=== PATIENT | male | born 1955 | race Caucasian/White ===

== ENCOUNTER 2016-11-12 15:52 | Emergency (ER) | payer BC, OTHER ==
--- NOTE | ~2016-11-12 | CR72 ---
[facility] A Service of [facility] & [facility] RADIOLOGY TEXT RESULTS PATIENT: EDGARD KITCHEN LOCATION: [facility] : [birth year] UNIT #: [id number] AGE: [address]: Bhupendra Solano MD SEX: M ORDER DR: [id number] [facility] [address] [facility]. [place], [place] [address] [id number] MR#: [id number] Acc #: [id number] NAME: EDGARD KITCHEN, : 1955 SEX: M STUDY DATE/TIME: 11/12/2016 16:05 UNIT: [facility] ROOM: STUDY DESCRIPTION: CR Chest Single View Portable Attending Physician: Bhupendra Solano M.D. Ordering Physician: Ed Jefry Staley M.D. Primary Care Physician: Primary Care Physician No MEDICAL IMAGING REPORT This report is preliminary unless electronic signature is present EXAM Portable chest, 11/12/2016 CLINICAL HISTORY Fever, short of air, weakness today. FINDINGS Tracheostomy appliance remains, but there is no consolidation or effusion or pneumothorax. Heart size is normal. There is an old, healed right clavicle fracture deformity but no acute bony abnormality. Dictated by... Jaun Simpson M.D. THIS IS AN ELECTRONICALLY VERIFIED REPORT Jaun Simpson M.D. at 11/15/2016 3:47 PM TEV/psc TD: 11/13/2016 02:45 JOB #: [id number] MEDICAL IMAGING REPORT COPY
[2016-11-12 15:42] LABS: BASOPHIL# 0.1 X10e3 (0-0.3); BASOPHIL% 0.5 % (0-2.5); EOSINOPHIL# 0.1 X10e3 (0-0.7); EOSINOPHIL% 0.6 % (0.0-7.0); HEMATOCRIT 38.9 % (38.0-50.0); HEMOGLOBIN 12.8 gm/dL (13.0-16.0); LYMPHOCYTE# 1.8 X10e3 (1.0-3.5); LYMPHOCYTE% 13.7 % (17.0-45.0); MEAN CELL VOLUME 95.7 FL (83-96); MEAN CORPUSCULAR HEMOGLOBIN 31.6 PG (28-34); MEAN PLATELET VOLUME 10.3 FL (6.5-11.5); MONOCYTE# 1.2 X10e3 (0-1.0); MONOCYTE% 9.1 % (3.0-12.0); NEUTROPHIL% 76.1 % (40-75); PLATELET COUNT 188 X10e3 (140-420); RED BLOOD COUNT 4.07 X10e (3.90-5.60); WHITE BLOOD COUNT 13.1 X10e3 (4.0-10.5)
[2016-11-12 15:44] LABS: DIFF IND NO
[~2016-11-12 15:52] MED LIST: ACETAMINOPHEN650 M4 GT; ALBUTEROL MININEB NEB; ATIVAN0.5 M1 GT; BACLOFEN10 MG GT; BETADINE3780 ML TOP; BUSPIRONE HCL10 MG GT; CARDIZEM30 M1 GT; DEPAKENE S50 MG/ML S GT; DESYREL50 MG GT; DIGOX0.125 MG GT; DOCUSATE SODIU100 MG GT; JEVITY 1.5 CA1000 ML GT; METOPROLOL TAR100 MG GT; MIRALAX17 G2 GT; NO MEDICATIONS; PANTOPRAZOLE SO40 MG GT; PERCOCET5/325 PO; [UNRECOGNIZED DRUG - OTHER] GT
[2016-11-12 16:04] LABS: ALBUMIN SERUM 2.8 g/dL (3.5-5.0); ALKALINE PHOSPHATASE 93 U/L (32-92); ALT (SGPT) 13 U/L (10-40); AST (SGOT) 16 U/L (10-42); BILIRUBIN, DIRECT 0.1 mg/dL (0.0-0.2); BILIRUBIN,INDIRECT 0.3 mg/dL (0.0-0.9); BILIRUBIN,TOTAL 0.4 mg/dL (0.2-2.0); BLOOD UREA NITROGEN 13 mg/dL (9-23); CALCIUM SERUM 9.5 mg/dL (8.4-10.2); CARBON DIOXIDE 30 mmol/L (22-31); CHLORIDE 95 mmol/L (100-111); CREATININE SERUM 0.5 mg/dL (0.6-1.4); GLOM FILT RATE Estimated ABOVE60 mL/min (>60); GLUCOSE FASTING 80 mg/dL (70-110); PROTEIN TOTAL SERUM 7.1 g/dL (6.0-8.3); SODIUM 132 mmol/L (135-145)
[2016-11-13] MEDS ORDERED: VALPROIC A250 MG/51 PO ×2 (21:16→21:26)
[2016-11-13] MEDS ORDERED: PERFOROMIS20 MCG/2 M NEB (21:23)
[2016-11-13] MEDS ORDERED: VITAMIN C500 MG/5 M PO (21:25)
[2016-11-13] MEDS ORDERED: ACETAMINOP GT (21:36)
[2016-11-13] MEDS ORDERED: HYDROCORTISONE30 G2 EXT (21:39)
== END 2016-11-12 19:07 | disposition home or self-care (01) ==
LOC: CED 15:52
PROVIDERS: Emergency Medicine
DX: L03.312 Cellulitis of back [any part except buttock and flank] (principal); L98.429 Non-pressure chronic ulcer of back with unspecified severity; I10 Essential (primary) hypertension; E11.9 Type 2 diabetes mellitus without complications; Z90.49 Acquired absence of other specified parts of digestive tract; Z98.890 Other specified postprocedural states
CPT/HCPCS: 36415; 71010; 80048; 80076; 83605; 85025; 87040; 87070; 87077; 87186; 87205; 96365; 99284

== ENCOUNTER 2016-11-13 20:14 | Inpatient (IN) | payer BC, OTHER ==
--- NOTE | ~2016-11-13 | DS ---
Unit #: [id number] #: [id number] Patient: EDGARD KITCHEN [id number] [address] [address] [id number] MR#: [id number] NAME: EDGARD KITCHEN SR ROOM: 216 Age: 61 Sex: M Admission Date: 11/13/2016 : 1955 Discharge Date: 11/16/2016 Attending Physician: Lashon Fair M.D. Primary Care Physician: No Primary Care Physician DISCHARGE SUMMARY DISCHARGE DIAGNOSES 1. Cellulitis. 2. Chronic respiratory failure. CHIEF COMPLAINT/HISTORY OF PRESENT ILLNESS The patient was admitted with complaint of cellulitis. Had an incision and drainage done by general surgery and has been doing well. Infectious disease saw the patient, recommended antibiotics doxycycline 100 mg p.o. b.i.d. for 10 days. He will be discharged back to senior care. PHYSICAL EXAMINATION VITAL SIGNS: Temperature is 97, pulse 63, respirations 16, blood pressure 95/49. NEUROLOGIC: He is at baseline. CARDIOVASCULAR: S1 plus S2. RESPIRATIONS: Bilateral air entry. Bilateral mild rhonchi. GASTROINTESTINAL: Nontender, soft. Bowel sounds positive. EXTREMITIES: No edema. DIAGNOSTIC STUDIES Labs and imaging have been reviewed. DISCHARGE MEDICATIONS As per med rec. FOLLOWUP Follow with Dr. Rosalio Hurst and will be discharged back to senior care. Dictated by... Maria Esther Wyatt TD: 11/16/2016 12:28 JOB #: [id number] Unit #: [id number] #: [id number] Patient: EDGARD KITCHEN DISCHARGE SUMMARY X Lashon Fair MD X DISCHARGE SUMMARY
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
--- NOTE | ~2016-11-13 | OR ---
Unit #: [id number] #: [id number] Patient: EDGARD KITCHEN [id number] [address] [address] [id number] I MR#: [id number] NAME: EDGARD KITCHEN SR ROOM: [facility] Date of Procedure: 11/14/2016 Admission Date: 11/13/2016 Surgeon: Les Carbajal M.D. : 1955 Attending Physician: Lashon Fair M.D. Primary Care Physician: Primary Care Physician No OPERATIVE REPORT PREOPERATIVE DIAGNOSIS Necrotic abscess, right back. POSTOPERATIVE DIAGNOSIS Necrotic abscess, right back. PROCEDURE PERFORMED Sharp excisional debridement of skin, subcutaneous tissue, and muscle 8 x 8 cm area of right upper back. ANESTHESIA General LMA anesthesia with 0.5% Marcaine plain local anesthesia. FINDINGS The area was sharply debrided circumferentially. FLUIDS 1000 mL of crystalloid. ESTIMATED BLOOD LOSS Minimal. DRAINS None. TUBES None. SPECIMENS Sent to microbiology and pathology. COMPLICATIONS None apparent. CONDITION The patient tolerated the procedure well. INDICATIONS FOR PROCEDURE The patient is a 61-year-old white male, who is from a rehabilitation center, had developed a large abscess on his right upper back. He presents at this time for sharp excisional debridement. Unit #: [id number] #: [id number] Patient: EDGARD KITCHEN SR DESCRIPTION OF PROCEDURE After obtaining informed consent as well as receiving scheduled antibiotics, the patient was brought to the operating room and after adequate general endotracheal anesthesia was obtained as the patient has a tracheostomy tube, the patient was placed into the left lateral decubitus position with all areas carefully padded and axillary roll in place and all extremities manipulated very carefully. His right back was prepped and draped in a sterile fashion. An incision was made circumferentially around the necrotic tissue with a knife and taken down through the skin and subcutaneous tissues with a knife and all necrotic areas were sharply debrided with a scalpel. This included some level of the muscular fascia. Hemostasis was obtained with the Bovie. All areas were infiltrated with 0.5% Marcaine plain local anesthesia, irrigated and packed with a saline soaked fluffs and then a dry dressing. Needle counts, sponge counts, and instrument counts were all correct as reported by the scrub nurse x2. The patient went from the operating room to the recovery room in stable condition. Dictated by... Maria Esther Stallworth/carrie TD: 11/15/2016 06:02 JOB #: [id number] OPERATIVE REPORT X Les Carbajal MD X PROCEDURE OPERATIVE NOTE
--- NOTE | ~2016-11-13 | EKG ---
PATIENT: EDGARD KITCHEN UNIT #: [id number] Ventricular Rate: 88 BPM Atrial Rate: 88 BPM P-R Interval: 120 ms QRS Duration: 98 ms Q-T Interval: 336 ms QTC Calculation(Bezet): 406 ms P [place]: 57 degrees Calculated R [place]: 7 degrees Calculated T [place]: 56 degrees Diagnosis Line: Normal sinus rhythm Diagnosis Line: Normal ECG Diagnosis Line: When compared with ECG of 23-MAY-2016 08:54, Diagnosis Line: Criteria for Inferior infarct are no longer Diagnosis Line: Present Diagnosis Line: T wave inversion no longer evident in Inferior Diagnosis Line: leads Diagnosis Line: Confirmed by MENDEL WESLEY MD ([id number]) on Diagnosis Line: 11/14/2016 11:28:28 AM INTERPRETING MD: MARYJANE HULL
--- NOTE | ~2016-11-13 | A ---
[facility] Nutrition Therapy DATE: 11/14/16 Patient: EDGARD KITCHEN SR Physician: DANILO Address: [address] [place] [address] Room/Bed: [address] [place] [address], Zip: [place] [address] Admit Date: 11/13/16 Date of : [birth year] Height: 5 7 Weight: 128 58.5 NUTRITIONAL ASSESSMENT: REASON: 2 nutrition risk pts RE: home TF and pressure ulcer 61 yo male admitted for pressure ulcer PMH: traumatic brain injury, chronic respiratory failure, tracheostomy, COPD, appendectomy, encephalopathy Anthropometrics: HT: 5'10", WT: 59 kg (130#), BMI: 18.7, 78%IBW Labs: Na+ 132, Cl- 97, Creat 0.5 Meds: NaCl, Protonix, Miralax, Ascorbic acid, Colace I/O & Bowel function: 970/- Skin Integrity: pressure ucler (right flank), redness (LT hip), scabbing (L outer ankle) Estimated Nutrition Needs: 1770 - 1065 kcal (30-35 kcal/kg) 71 - 89 grams protein (1.2-1.5 g/kg) Assessment: Chart reviewed, events noted. Pt getting debridement for skin issues. [facility], there pt receives Jevity 1.5 2 cans TID + 1/2 can @ HS (6.5 cans total daily). Pt has recent weight loss of ~30# over past 6 months (wts noted 158-169#), 21% severe wt loss. Pt was unable to communicate 2' PMH (traumatic brain injury). No current plans in place to begin alternative nutrition support at this time. Dx: Inadequate oral intake RT PMH AEB NPO, 18.7 BMI, 30# wt loss, PEG in place, need for home enteral nutrition support. Intervention: 1. Jevity 1.5 Monitoring, Evaluation and Goals: 1. Nutrition; provide ~80-100% of estimated needs 2. Labs; WNL 3. Skin; promote healing 4. Weights; promote weight gain Recommendations: 1. Once medically feasible, begin current home nutrition regimen of Jevity 1.5 2 cans [facility] Nutrition Therapy DATE: 11/14/16 Patient: EDGARD KITCHEN SR Physician: DANILO Address: [address] [place] [address] Room/Bed: [address] [place] [address], Zip: [place] [address] Admit Date: 11/13/16 Date of : [birth year] Height: 5 7 Weight: 128 58.5 TID + 1/2 can @ HS. This will provide: 2308 kcal/98 g PRO/1170 mL free H2O. Add free water flushes 190 mL q 4 hrs to meet pt's current estimated fluid needs. 2. Add multivitamin daily to pt's currrent medication regimen 2' to promote wound healing. Pt is at a moderate nutrtional risk. RD will f/u per protocol. Respectfully, JEVON BYRNES, Colorectal Surgeon Shira Peterson MS, RD, LD [employer] [facility] cc: client file
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
[2016-11-13] MEDS ORDERED: VALPROIC A250 MG/51 PO ×2 (21:16→21:26)
[2016-11-13] MEDS ORDERED: PERFOROMIS20 MCG/2 M NEB (21:23)
[2016-11-13] MEDS ORDERED: VITAMIN C500 MG/5 M PO (21:25)
[2016-11-13] MEDS ORDERED: ACETAMINOP GT (21:36)
[2016-11-13] MEDS ORDERED: HYDROCORTISONE30 G2 EXT (21:39)
[2016-11-13 23:54] LABS: BASOPHIL% 0.5 % (0-2.5); EOSINOPHIL# 0.1 X10e3 (0-0.7); EOSINOPHIL% 0.6 % (0.0-7.0); HEMATOCRIT 38.2 % (38.0-50.0); HEMOGLOBIN 12.6 gm/dL (13.0-16.0); LYMPHOCYTE# 1.7 X10e3 (1.0-3.5); LYMPHOCYTE% 19.5 % (17.0-45.0); MEAN CELL VOLUME 95.7 FL (83-96); MEAN CORPUSCULAR HEMOGLOBIN 31.5 PG (28-34); MEAN PLATELET VOLUME 9.4 FL (6.5-11.5); MONOCYTE# 0.8 X10e3 (0-1.0); MONOCYTE% 8.9 % (3.0-12.0); NEUTROPHIL# 6.2 X10e3 (1.5-7.1); NEUTROPHIL% 70.5 % (40-75); PLATELET COUNT 180 X10e3 (140-420); RED CELL DISTRIBUTION WIDTH 14.3 % (11.0-15.5); WHITE BLOOD COUNT 8.8 X10e3 (4.0-10.5)
[2016-11-13 23:56] LABS: DIFF IND NO
[2016-11-14 00:30] LABS: BLOOD UREA NITROGEN 20 mg/dL (9-23); CALCIUM SERUM 9.3 mg/dL (8.4-10.2); CARBON DIOXIDE 30 mmol/L (22-31); CHLORIDE 97 mmol/L (100-111); CREATININE SERUM 0.5 mg/dL (0.6-1.4); GLOM FILT RATE Estimated ABOVE60 mL/min (>60); GLUCOSE FASTING 90 mg/dL (70-110); POTASSIUM 4.1 mmol/L (3.5-5.1); SODIUM 132 mmol/L (135-145)
[2016-11-15 08:59] LABS: HEMATOCRIT 32.9 % (38.0-50.0); HEMOGLOBIN 10.7 gm/dL (13.0-16.0); MEAN CELL VOLUME 96.6 FL (83-96); MEAN CORPUSCULAR HEMOGLOBIN 31.4 PG (28-34); MEAN CORPUSCULAR HGB CONC 32.5 g/dL (30-36); MEAN PLATELET VOLUME 9.6 FL (6.5-11.5); RED BLOOD COUNT 3.4 X10e (3.90-5.60); RED CELL DISTRIBUTION WIDTH 13.9 % (11.0-15.5); WHITE BLOOD COUNT 4.7 X10e3 (4.0-10.5)
[2016-11-15 09:27] LABS: BLOOD UREA NITROGEN 13 mg/dL (9-23); CALCIUM SERUM 9.1 mg/dL (8.4-10.2); CARBON DIOXIDE 29 mmol/L (22-31); CHLORIDE 101 mmol/L (100-111); CREATININE SERUM 0.5 mg/dL (0.6-1.4); GLOM FILT RATE Estimated ABOVE60 mL/min (>60); GLUCOSE FASTING 87 mg/dL (70-110); POTASSIUM 3.8 mmol/L (3.5-5.1); SODIUM 135 mmol/L (135-145)
[2016-11-16 05:35] LABS: HEMATOCRIT 35.7 % (38.0-50.0); HEMOGLOBIN 11.4 gm/dL (13.0-16.0); MEAN CELL VOLUME 97.2 FL (83-96); MEAN CORPUSCULAR HEMOGLOBIN 31.1 PG (28-34); MEAN PLATELET VOLUME 10.2 FL (6.5-11.5); RED BLOOD COUNT 3.67 X10e (3.90-5.60); RED CELL DISTRIBUTION WIDTH 14.2 % (11.0-15.5); WHITE BLOOD COUNT 4.7 X10e3 (4.0-10.5)
[2016-11-16 05:58] LABS: ALBUMIN SERUM 2.3 g/dL (3.5-5.0); ALKALINE PHOSPHATASE 63 U/L (32-92); ALT (SGPT) 14 U/L (10-40); AST (SGOT) 22 U/L (10-42); BILIRUBIN,TOTAL 0.4 mg/dL (0.2-2.0); BLOOD UREA NITROGEN 9 mg/dL (9-23); CALCIUM SERUM 9.4 mg/dL (8.4-10.2); CARBON DIOXIDE 28 mmol/L (22-31); CHLORIDE 105 mmol/L (100-111); CREATININE SERUM 0.5 mg/dL (0.6-1.4); GLOM FILT RATE Estimated ABOVE60 mL/min (>60); GLUCOSE FASTING 91 mg/dL (70-110); POTASSIUM 4.6 mmol/L (3.5-5.1); PROTEIN TOTAL SERUM 6.3 g/dL (6.0-8.3); SODIUM 139 mmol/L (135-145)
== END 2016-11-17 08:12 | DRG 580 ==
LOC: C2A 20:14
PROVIDERS: Internal Medicine; Internal Medicine Infectious Disease; Surgery
PROC: 0KBF0ZZ Excision of Right Trunk Muscle, Open Approach (ICD-10-PCS; principal; 2016-11-14 12:00)
DX: L03.312 Cellulitis of back [any part except buttock and flank] (principal); J96.10 Chronic respiratory failure, unspecified whether with hypoxia or hypercapnia; Z93.0 Tracheostomy status; L02.212 Cutaneous abscess of back [any part, except buttock and flank]; J44.9 Chronic obstructive pulmonary disease, unspecified; Z66 Do not resuscitate; B95.62 Methicillin resistant Staphylococcus aureus infection as the cause of diseases classified elsewhere; Z87.820 Personal history of traumatic brain injury; Z87.891 Personal history of nicotine dependence
CPT/HCPCS: 80048; 80053; 80202; 85025; 85027; 87040; 87070; 87075; 87077; 87186; 87205; 88304; 88312; 93005; 94640; 94760; J1650; J2270; J2543; J3010; J3370